=== PATIENT | male | born 1945 | race Caucasian/White ===

== ENCOUNTER 2024-05-17 14:05 | Inpatient (IN) | payer MEDICARE, OTHER, SELFPAY ==
[2024-05-17] VITALS (10 sets, daily range): BP systolic 114–139; BP diastolic 61–88; BMI 28.3
[2024-05-17 10:25] LABS: Glucose - Point of Care 103 mg/dl (70-99)
--- NOTE | 2024-05-17 10:36 | ED.CVA ---
History of Present Illness
General
Chief Complaint: CVA/TIA Symptoms
Source: patient and spouse
Exam Limitations: none
Time Seen by Provider: 05/17/24 10:17
Nursing documentation reviewed up to this point in time: agreed with
Onset of Stroke Symptoms
Onset of symptoms known: No
Date of onset of symptoms: 05/17/24
Time pt last seen normal is known: Yes
Date last time pt seen normal: 05/16/24
Time last time pt seen normal: 22:00
History of Present Illness
History of Present Illness:
The patient is a very pleasant 79-year-old man with a past medical history of atrial fibrillation with a watchman's, subdural hematoma several years ago after a fall, essential tremors, who just underwent a total right knee replacement done 3 days
ago, who reportedly went to bed acting normal at 10:00 last night and was observed to have a left facial droop and slurred speech by his at 8 AM this morning. Patient reports he feels slight numbness in the right cheek. Patient took 325 mg
aspirin this morning. His reports he was taken off Eliquis years ago after the watchman's. Patient has no pain, including no headache. He denies weakness and numbness of the legs and arms. His speech sounds slurred but is comprehensible.
Stroke alert called. Neurology at bedside.
Past History
Past History
ED Past Medical History: Arrthythmia (afib on Xarelto) and Other (tremors, kidney stones)
ED Past Surgical History: Appendectomy, Orthopedic and Other (van IHR)
Social History
Tobacco: Non-smoker
Review of Systems
Review of Systems
Allergies reviewed?: Yes
All Other Systems: ROS reviewed and negative except as documented in HPI and ROS
Constitutional: Reports no symptoms
EENT: Reports no symptoms
Respiratory: Reports no symptoms
ABD/GI: Reports no symptoms
: Reports no symptoms
Musculoskeletal: Reports no symptoms
Skin: Reports no symptoms
Neurological: Reports other
Endocrine: Reports no symptoms
Hematologic/Lymphatic: Reports no symptoms
Psychiatric: Reports no symptoms
Phy Exam
Physical Exam
Physical Exam:
Physical Exam
General: no apparent distress, not acutely ill. Left facial droop
Neck: supple. no meningeal signs. normal psoterior pharynx
Heart: s1/s2 regular rate and rhythm, no murmur. equal radial pulses.
Lungs: no acute respiratory distress. clear bilaterally
Abdomen: normal bowel sounds. not tender. no CVAT
Neuro: alert and orientedx3. Left facial droop. Extraocular muscles intact. No drift in upper or lower extremities. 5 out of 5 strength in all extremities. Equal sensation bilaterally with the exception of slightly
diminished sensation in right cheek. Garbled speech but speech is completely comprehensible. Answers all questions appropriately. Follows all commands appropriately
Skin: no rash
Psychiatric: well kept. interactive and cooperative
Extremities: no edema. no calf tenderness. negative homans. good distal pulses
Scores
NIH Stroke Score
Level of Consciousness: 0 - Alert
LOC Questions: 0-Answers both correctly
LOC Commands: 0-Performs both correctly
Best Horizontal Gaze: 0-Normal
Visual [place]: 0=Normal, no visual loss
Facial Palsy: 2=Partial paralysis
Motor - Right Arm: 0=No drift 10 seconds
Motor - Left Arm: 0=No drift 10 seconds
Motor - Right Le-No drift 5 seconds
Motor - Left Le-No drift 5 seconds
Limb Ataxia: 0-Absent
Sensation: 0-Normal
Best Language: 0-No aphasia
Dysarthria: 1-Mild slurring
Extinction and Inattention: 0-No abnormality
Total Score:: 3
Thrombolytic Contraindication
Inclusion and Exclusion criteria reviewed: Yes
Reasons for NON-Tx with Thrombolytics ABSOLUTE Exclusions: Greater than 4.5 hrs from onset of sxs (Wake-up stroke)
IAT Contraindications: NIHSS < 6
Course
Orders/Labs/Results
Orders:
Orders
05/17/24 10:29
Electrocardiogram (*1) Urgent
Reason for Study: Other
Other Reason for Exam: Possible Stroke
CT HEAD STROKE ALERT W/o Cont Urgent
Comment:
Reason For Exam: facial droop/ s;lurred speech
CT HEAD/NECK ANG STROKE ALERT Urgent
Comment:
Reason For Exam: facial droop/ s;lurred speech
Bedside Glucose- Treatment ONCE
Cardiac Monitoring- Treatment ONCE
EKG- Treatment ONCE
IV Insert/Care/Rem.- Treatment PRN
Vital Signs As Directed
Frequency: Other
Weight As Directed
Frequency: Once
Comment: ZERO STRETCHER SCALE FOR ACCURATE WEIGHT
O2 Therapy [RESP] Urgent
Titrate/Wean O2 to maintain O2 sat greater than (%): 93
Special Instructions: MAINTAIN CONTINUOUS O2 SATS > OR = 93%
05/17/24 10:30
Complete Blood Count/With Diff Urgent
Comprehensive Metabolic Panel Urgent
PTT Urgent
Prothrombin Time Urgent
Troponin I Urgent
05/17/24 10:36
Diphenhydramine [Benadryl] 50 mg IV NOW STA
05/17/24 10:37
Diphenhydramine [Benadryl] 50 mg .ROUTE .STK-MED ONE
05/17/24 11:14
MRI Brain [MR Brain Without Contrast] Routine
Comment:
Reason For Exam: dysarthria
OK for patient to be off Cardiac Monitoring for MRI: No
Recent pill cam endoscopy?: No
05/18/24 08:00
Aspirin 325 mg PO DAILY
Abnormal Lab Results
05/17/24 05/17/24
10: 10:30
RBC 3.80 L 10^6/uL
(4.70-6.10)
Hgb 12.7 L g/dL
(13.0-18.0)
Hct 36.8 L %
(39.0-52.0)
MCV 96.8 H fL
(80.0-94.0)
MCH 33.4 H pg
(27.0-31.0)
Absolute Monos (auto) 1.1 H 10^3/uL
(0.1-0.6)
Lymphocytes % 16.9 L %
(20.5-51.1)
Monocytes % 13.7 H %
(1.7-9.3)
Sodium 133 L mmol/L
(135-145)
Chloride 96 L mmol/L
(98-107)
BUN 26 H mg/dl
(9-20)
Total Protein 6.0 L g/dl
(6.3-8.2)
POC Glucose 103 H mg/dl
(70-99)
05/17/24 10:30
05/17/24 10:30
Vital Signs
Initial and Last Documented VS:
Initial Vital Signs
Temp Pulse Resp BP Pulse Ox
97.8 F 64 16 114/76 99
05/17/24 10:14 05/17/24 10:14 05/17/24 10:14 05/17/24 10:14 05/17/24 10:14
Last Documented Vital Signs
Temp Pulse Resp BP Pulse Ox
97.8 F 65 12 125/77 97
05/17/24 10:14 05/17/24 11:30 05/17/24 11:30 05/17/24 11:00 05/17/24 11:30
MDM/Problems Addressed
Differential Diagnosis Includes:
Acute ischemic CVA, acute hemorrhagic CVA, hypoglycemia
MDM/Problems Addressed:
Patient presents with acute slurred speech and left facial droop
Chronic conditions affecting care:
A-fib can increase risk of stroke
*Radiology
Radiology exam reviewed: radiology read reviewed
*Pulse Oximetry
Patient hypoxic: no
*EKG
Interpreted by ED Provider?: Yes
Interpretation: abnormal
Comparison EKG: no comparison EKG present
Rate: normal
Rhythm: a-fib
[place]: left axis deviation
Interval: normal interval
QRS Pattern: normal QRS
Ischemia: non-specific ST changes
*Safety Intern Interpretation
Rate: normal
Interpretation: normal
*Critical Care Note
Total Time (30-74mins, 75-104mins- exclusive of procedures): 42 minutes
comment:
42 minutes of critical care given to patient including frequent reassessments of his neurological exam, speaking to his , counseling the patient, speaking to neurology as well as reviewing his CT and lab work
Data Reviewed
Review of Other/Old Records Reveals: Discharge Summary (Discharge summary reviewed from [facility] when patient underwent Watchman procedure for A-fib)
Source: patient and spouse
Patient Management
Discussion with other providers: Hospitalist and Other (Neurologist on-call who is at the bedside.)
Escalation/DeEscalation of care consider admission/obs:
Patient will be admitted for likely ischemic stroke. Patient is not a TNK candidate given that it was a wake-up stroke and has mild symptoms.
ED Attending Note
-
Portions of this chart may have been created with voice recognition software.� Occasional wrong word or��sound alike� substitutions may have occurred due to the inherent limitations of voice recognition software.
Discharge Plan
Departure
Patient Disposition: Admit
Date of Disposition: 05/17/24
Time of Disposition: 10:47
Admit to: Telemetry
Presentation/result/management discussed w/ accepting MD/DO: Hospitalist
Patient with high blood pressure during this ER visit?: No
Condition: Good
Discharge Problem:
Acute CVA (cerebrovascular accident)
Prescriptions:
No Action
diphenhydramine HCl 50 mg Capsule
50 mg PO PRN PRN (Reason: allergies)
omeprazole 40 mg Capsule,Delayed Release(Dr/Ec)
40 mg PO DAILY
propranolol 20 mg Tablet
20 mg PO BID
alfuzosin 10 mg Tablet Extended Release 24 Hr
10 mg PO DAILY
aspirin [aspirin] 81 mg tablet,chewable
81 mg PO DAILY Qty: 1 0RF
Eliquis 2.5 mg tablet
2.5 mg PO BID Qty: 180 3RF
Referrals:
Bryant Tijerina DO [Family Provider] -
Interventions
Interventions:
*Risk Screen - Suicide Last Done: 05/17/24 10:36
*General Assessment Last Done: 05/17/24 10:14
*Neglect/Abuse Screening Last Done: 05/17/24 10:36
ED- Fall Risk Assessment Last Done: 05/17/24 10:37
*ED COVID-19 Vaccine History Last Done: 05/17/24 10:14
ED- Pulmonary Assessment Last Done: 05/17/24 10:37
ED- Neurological Assessment Last Done: 05/17/24 10:32
ED- Cardiac Assessment Last Done: 05/17/24 10:37
Discharge Date and Time
Print Language: TURKMEN
[2024-05-17] MEDS: BENADRYL 50 MG IV (10:39)
--- NOTE | 2024-05-17 10:53 | CON.NEURO ---
Consultation
Order
Date of Consultation: 05/17/24
Requesting Provider: Ryann Vargas MD
Reason for Consult: Stroke alert
Activated: 10:18 AM
HPI: This is a 79-year-old left-handed man who presented to [facility] on May 17, 2024 with dysarthria. According to the patient he was able to ambulate to bathroom around 3 AM today. He was noted to have slurred speech and
facial asymmetry around 8 AM today in the morning by his spouse. No reports of motor, sensory visual deficits. [place] [facility] [place]
Mr. Cruz took ASA 325 mg today in the morning.
ER VS: 114/76, 64, afebrile.
PDMP: Tramadol Hcl 50 Mg 60 tabs filled in on 04/29/2024; Oxycodone Hcl�40 tabs filled in on 04/29/2024.
Labs: pending
CT head-no acute abnormalities.
MAVIS(11/01/22) No clear evidence of shunt by color flow Doppler.
PMH:Essential tremor, A-Fib, h/o traumatic SAH/SDH, ambulatory dysfunction, nephrolithiasis, BPH, h/o GIB, SNHL
PSH: Right TKA(05/14/2024), Watchman's procedure, Mohs surgery, appendectomy, bilateral cataract surgery, hernia repair, cystolitholapaxy, nephrolithiasis
SH: , retired,nonsmoker.
All: Iodine
HENT: Positive for poor hearing
Musculoskeletal:positive for right knee pain
Neurological: Positive for dysarthria, difficulties with ambulation.
General: Well developed. In no acute distress.
Cardio: Regular rate and rhythm without murmur. Extremities are without cyanosis or edema.
Neuro:
Mental Status: Alert, oriented to person, place, and date. Good fund of knowledge. Follows complex requests across the midline. Comprehension, naming, and repetition intact.
Cranial Nerves: . Pupils are equally round and reactive to light. EOMs full. Visual gar full to confrontation. No ptosis. No nystagmus. V1-V3 intact to light touch and pinprick bilaterally, symmetric. Mild left facial weakness. Poor hearing
AU. The palate elevated well. SCMs and traps 5/5. Tongue midline. Mild to mod dysarthria.
Motor: No PD or leg drift
Sensory: no extinction to DSS
Coordination: No dysmetria BL action hand tremor
Gait: deferred
Assessment and Plan:
I. Acute R lacunar syndrome. Not a candidate to IV thrombolysis due to recent surgery and timing of the symptoms onset.
II.Essential tremor
III. Ambulatory dysfunction
-Fall precautions
-Avoid cerebral hypoperfusion
-Brain MRI wo geronimo
-Continue ASA 325 mg QD
-Plavix 75 mg QD for 21 days if no objections from ortho service
-Lipitor 40 mg QHS.
-Continue home dose of Propranolol
-Please check HbA1C, LDL, TFTs, ua, ua cx, ua tox
-Follow up CTA head/neck results
-PT.
-DVT prophylaxis.
I personally reviewed all radiology and labs along with past medical records pertinent to current medical problems. Total time spent in patient care is 60 minutes.
Thank you for allowing us to participate in the care of this patient. We will continue to follow. Please do not hesitate to contact us with any questions or concerns.
Subjective/Objective
Subjective Data
Date of Service: May 17, 2024
Objective Data
Vital Signs
Temp Pulse Resp BP Pulse Ox
36.6 C 64 16 114/76 99
05/17/24 10:14 05/17/24 10:14 05/17/24 10:14 05/17/24 10:14 05/17/24 10:14
Patient Allergies
Iodinated Contrast Media Allergy (Mild, Verified 11/01/22 07:43)
Rash
Medications
-
Home Medications
�Medication �Instructions �Recorded
alfuzosin 10 mg tablet,extended 10 mg PO DAILY 09/18/22
release 24 hr
apixaban 2.5 mg tablet (Eliquis) 2.5 mg PO BID #180 tabs 09/18/22
aspirin 81 mg chewable tablet 81 mg PO DAILY #1 tab 09/18/22
diphenhydramine HCl 50 mg capsule 50 mg PO PRN PRN allergies 09/18/22
omeprazole 40 mg capsule,delayed 40 mg PO DAILY 09/18/22
release
propranolol 20 mg tablet 20 mg PO BID 09/18/22
Vital Signs and Labs
-
Vital Signs and Labs:
Vital Signs
Temp Pulse Resp BP Pulse Ox
36.6 C 64 16 114/76 99
05/17/24 10:14 05/17/24 10:14 05/17/24 10:14 05/17/24 10:14 05/17/24 10:14
Lab Results
05/17/24 10:30
Home Medications
-
Home Medications
alfuzosin 10 mg tablet,extended release 24 hr 10 mg PO DAILY 09/18/22
apixaban 2.5 mg tablet (Eliquis) 2.5 mg PO BID #180 tabs 09/18/22
aspirin 81 mg chewable tablet 81 mg PO DAILY #1 tab 09/18/22
diphenhydramine HCl 50 mg capsule 50 mg PO PRN PRN allergies 09/18/22
omeprazole 40 mg capsule,delayed release 40 mg PO DAILY 09/18/22
propranolol 20 mg tablet 20 mg PO BID 09/18/22
[2024-05-17 10:59] LABS: % Basophils 0.4 % (0-2); % Eosinophils 0.5 % (0-6); % Immature Granulocytes 0.3 % (0-0.5); % Lymphocytes 16.9 % (20.5-51.1); % Monocytes 13.7 % (1.7-9.3); % Neutrophils 68.2 % (42.2-75.2); Absolute Lymphocytes 1.3 10^3/uL (1.2-3.4); Absolute Monocytes 1.1 10^3/uL (0.1-0.6); Absolute Neutrophils 5.2 10^3/uL (1.4-6.5); Hematocrit 36.8 % (39.0-52.0); Hemoglobin 12.7 g/dL (13.0-18.0); Mean Corp Hgb Conc. 34.5 g/dL (33.0-37.0); Mean Corpuscular Hgb 33.4 pg (27.0-31.0); Mean Corpuscular Volume 96.8 fL (80.0-94.0); Mean Platelet Volume 9.6 fL (7.4-10.4); Nucleated Red Blood Cells % 0 % (-); Platelet Count 216 10^3/uL (130-400); Red Cell Dist. Width 13.2 % (11.5-14.5); White Blood Cell Count 7.7 10^3/uL (4.8-10.8)
[2024-05-17 11:10] LABS: INR 1.16; PT 14.6 Sec (11.4-14.6)
[2024-05-17 11:11] LABS: APTT 31.4 Sec (23.4-35.0)
[2024-05-17 11:16] LABS: ALT (SGPT) 17 U/L (0-50); AST (SGOT) 19 U/L (17-59); Albumin 3.6 g/dl (3.5-5.0); Alkaline Phosphatase 62 U/L (38-126); Blood Urea Nitrogen 26 mg/dl (9-20); Calcium 9.7 mg/dl (8.4-10.2); Carbon Dioxide 29 mmol/L (22-30); Chloride 96 mmol/L (98-107); Estimated Creatinine Clearance 85 ml/min; Glucose 93 mg/dl (70-99); Potassium 4.5 mmol/L (3.5-5.1); Sodium 133 mmol/L (135-145); Total Bilirubin 0.9 mg/dl (0.2-1.3); eGFR > 60.00
[2024-05-17 11:27] LABS: Troponin I < 0.012 ng/ml
--- NOTE | 2024-05-17 13:42 | HPS.HSE ---
Family Physician
-
Family Physician: Bryant Tijerina
Chief Complaint
-
slurred speech and facial asymmetry
History of Present Illness
79-year-old male with past medical history of essential tremor, atrial fibrillation on aspirin 325 mg daily, history of traumatic SAH/SDH, amatory dysfunction, nephrolithiasis, BPH, history of GI bleed now presenting for dysarthria. Recent right
TKA Patient had woken up today to go to the bathroom at approximately 3 AM with no known changes in mental status/motor symptoms.. Subsequently woke up at 8 AM, and at that time noted to have slurred speech and facial asymmetry. No fever, chills,
nausea, vomiting. No other motor, sensory, visual deficits. Last known unknown at 10 PM yesterday night. Patient did take aspirin 325 mg today.
Medical History
Past Medical History
Past Medical History: Reports Other
Additional Past Medical History:
Essential tremor, A-Fib, h/o traumatic SAH/SDH, ambulatory dysfunction, nephrolithiasis, BPH, h/o GIB, SNHL
Past Surgical History: Reports Other
Additional Past Surgical History:
Right TKA(05/14/2024), Watchman's procedure, Mohs surgery, appendectomy, bilateral cataract surgery, hernia repair, cystolitholapaxy, nephrolithiasis
Social History
Tobacco: Non-smoker
Personal:
Living: With Family
Family History
Family History: Not pertinent
Allergies / Home Medications
Allergies reflects when Allergies were last updated in [employer].
Home Medications with original date entered in [employer]
Allergy/Medication List:
Allergies
Allergy/AdvReac Type Severity Reaction Status Date / Time
Iodinated Contrast Media Allergy Mild Rash Verified 11/01/22 07:43
Home Medications
alfuzosin 10 mg tablet,extended release 24 hr 10 mg PO DAILY 09/18/22
diphenhydramine HCl 50 mg capsule 50 mg PO Q6HPRN PRN allergies 09/18/22
propranolol 20 mg tablet 20 mg PO BID 09/18/22
acetaminophen 650 mg tablet,extended release 1,300 mg PO TIDPRN PRN mild pain 05/17/24
aspirin 325 mg tablet 325 mg PO DAILY 05/17/24
calcium carbonate (Tums) 200 mg PO BIDPRN PRN gerd 05/17/24
docusate sodium 100 mg capsule (Colace) 100 mg PO BID 05/17/24
finasteride 5 mg tablet 5 mg PO QPM 05/17/24
gabapentin 100 mg capsule 100 mg PO TID 05/17/24
omeprazole 20 mg tablet,delayed release 20 mg PO DAILY 05/17/24
ondansetron 4 mg disintegrating tablet 4 mg PO Q6HPRN PRN NAUSEA 05/17/24
oxycodone 5 mg tablet 5 mg PO Q4HPRN PRN SEVERE PAIN 05/17/24
Review of Systems
-
History Source: Patient
A 12 point ROS was completed and negative except as noted: Yes
Physical Exam
Vital Signs
Vital Signs
Temp Pulse Resp BP Pulse Ox
97.8 F 64 14 115/61 96
05/17/24 10:14 05/17/24 12:45 05/17/24 12:45 05/17/24 12:00 05/17/24 12:45
Physical Exam
General: Well Developed
HEENT: NormoCephalic
Respiratory: Clear
Cardiac: S1/S2 and Regular Rhythm
GI: Soft and Non Tender
Musculoskeletal: No Clubbing
Skin: Warm and Dry
Neuro: Awake, Alert, Oriented and AO x 3
Hematologic/Lymphatic: No Lymphadenopathy
Laboratory Results
-
05/17/24 10:30
05/17/24 10:30
Laboratory Results
PT 14.6 Sec (11.4-14.6) 05/17/24 10:30
INR 1.16 05/17/24 10:30
APTT 31.4 Sec (23.4-35.0) 05/17/24 10:30
Total Bilirubin 0.9 mg/dl (0.2-1.3) 05/17/24 10:30
AST 19 U/L (17-59) 05/17/24 10:30
ALT 17 U/L (0-50) 05/17/24 10:30
Alkaline Phosphatase 62 U/L (38-126) 05/17/24 10:30
Troponin I < 0.012 ng/ml 05/17/24 10:30
Data Reviewed
-
CT Scan: Image Personally Visualized and interpreted and Report Reviewed by me
Lab Data: Labs Reviewed by me
Impression/Plan
-
IMPRESSION:
79-year-old male with past medical history of essential tremor, atrial fibrillation on aspirin 325 mg daily, history of traumatic SAH/SDH, ambulatory dysfunction, nephrolithiasis, BPH, history of GI bleed now presenting for dysarthria. Found to have
TIA/CVA
PLAN:
#TIA v CVA
-suspected Acute R lacunar syndrome
-Permissive hypertension, okay for propranolol for essential tremor at this point
-Brain MRI wo geronimo
-Continue ASA 325 mg QD (prior med for surgery but was on 81mg prior to)
-Plavix 75 mg QD for 21 days - generally no issue from ortho service for plavix; (our ortho service said its okay for DAPT) i Called ortho surgeon who performed the procedure - and left VM - number is [phone]
-Lipitor 40 mg QHS.
-Continue home dose of Propranolol
-Check HbA1C, LDL, TFTs, ua, ua cx, ua tox
-PT/OT
-ECHO
-monitor cbc, stool with dapt in setting of hx of GI bleed
#Atrial Fibrillation s/p watchman
-Cont ASA 325mg (was on 81mg prior to TKA),
-ECHO
-Sees Sangrigoli outpatient
#Recent TKA
-monitor cbc with DAPT
#BPH
-hold alfuzosin for now
-DVT prophylaxis - hsq
--- NOTE | 2024-05-17 16:25 | PTCARENOTE ---
patient arrived to floor 1500. Vitals and nursing assessment complete at this time. NIH scale 2 which is unchanged from the score in the ED given to me in report.
[2024-05-17] MEDS: PROSCAR 5 MG PO (17:24)
[2024-05-17] MEDS: NEURONTIN 100 MG PO ×2 (17:24→21:39)
[2024-05-17] MEDS: LIPITOR 40 MG PO (17:24)
[2024-05-17 18:32] LABS: ALT (SGPT) 17 U/L (0-50); AST (SGOT) 20 U/L (17-59); Albumin 3.6 g/dl (3.5-5.0); Alkaline Phosphatase 64 U/L (38-126); Blood Urea Nitrogen 22 mg/dl (9-20); Calcium 9.7 mg/dl (8.4-10.2); Carbon Dioxide 29 mmol/L (22-30); Chloride 99 mmol/L (98-107); Estimated Creatinine Clearance 97 ml/min; Glucose 142 mg/dl (70-99); Potassium 4.6 mmol/L (3.5-5.1); Sodium 135 mmol/L (135-145); Total Bilirubin 0.9 mg/dl (0.2-1.3); Total Protein 5.9 g/dl (6.3-8.2); eGFR > 60.00
[2024-05-17] MEDS: INDERAL 20 MG PO (21:35)
[2024-05-17] MEDS: COLACE 100 MG PO (21:36)
[2024-05-17 22:12] LABS: Urine Albumin Negative (Neg - Trace); Urine Bilirubin Negative (Negative); Urine Character Clear (Clear); Urine Color Straw; Urine Glucose Negative (Negative); Urine Ketone Negative (Negative); Urine Leukocyte Negative (Negative); Urine Nitrite Negative (Negative); Urine Occult Blood Negative (Negative); Urine Specific Gravity 1.005 (<1.030); Urine Urobilinogen Negative (Neg - 1+)
[2024-05-17 22:21] LABS: Amphetamines Negative (Negative); Barbiturates Negative (Negative); Benzodiazepines Negative (Negative); Buprenorphine Negative (Negative); Cocaine Negative (Negative); Marijuana Negative (Negative); Methadone Negative (Negative); Methamphetamines Negative (Negative); Opiates Negative (Negative); Phencyclidine Negative (Negative); Tricyclic Antidepressants Negative (Negative)
[2024-05-18] VITALS (8 sets, daily range): BP systolic 104–169; BP diastolic 55–92; PULSE 81–92; O2SAT 98; BMI 26.6
[2024-05-18 07:00] LABS: Hematocrit 33.7 % (39.0-52.0); Hemoglobin 11.6 g/dL (13.0-18.0); Mean Corp Hgb Conc. 34.4 g/dL (33.0-37.0); Mean Corpuscular Hgb 32.7 pg (27.0-31.0); Mean Corpuscular Volume 94.9 fL (80.0-94.0); Mean Platelet Volume 10.1 fL (7.4-10.4); Platelet Count 208 10^3/uL (130-400); Red Blood Cell Count 3.55 10^6/uL (4.70-6.10); Red Cell Dist. Width 13.2 % (11.5-14.5); White Blood Cell Count 7.3 10^3/uL (4.8-10.8)
[2024-05-18 07:24] LABS: HDL Cholesterol 59 mg/dl; LDL Cholesterol, Calculated 71 mg/dl; Magnesium 1.9 mg/dl (1.6-2.3); Total Cholesterol 142 mg/dl (50-199); Triglyceride 62 mg/dl (10-149); Very Low Density Lipoprotein 12 mg/dl (0-30)
[2024-05-18 07:51] LABS: TSH Reflex To Free T4 0.72 uIU/ml (0.47-4.68)
[2024-05-18] MEDS: INDERAL 20 MG PO ×2 (08:43→20:26)
[2024-05-18] MEDS: ASPIRIN 325 MG PO (08:43)
[2024-05-18] MEDS: NEURONTIN 100 MG PO ×3 (08:43→22:30)
[2024-05-18] MEDS: COLACE 100 MG PO ×2 (08:44→20:24)
[2024-05-18] MEDS: PROTONIX 40 MG PO (08:44)
[2024-05-18] MEDS: TYLENOL 1000 MG PO ×3 (08:53→22:30)
--- NOTE | 2024-05-18 10:12 | W.PN.HOSP.TC ---
Today's Communication/Plan
-
CVA workup
Assessment / Plan
Assessment / Plan
Impression:
Presentation with acute onset of left facial droop and aphasia
Acute right hemispheric CVA/right lacunar syndrome.
Conditions prior to admission:
Right TKA 05/15
Chronic atrial fibrillation.
Status post watchman placement 09/27.
Hypertension
History of subdural hematoma 04/26 while on rivaroxaban.
History of middle meningeal artery embolization baseline GERD.
Benign prostatic hyperplasia
Essential tremor.
History of gastrointestinal hemorrhage and duodenal ulcers
Plan:
Acute right lacunar syndrome.
Patient presents with acute onset of aphasia and left facial droop.
Persistent symptoms.
CT scan of the head with no acute abnormalities.
CTA with no vascular occlusion.
Patient was not a candidate for thrombolytic therapy due to unknown timing of onset of his symptoms.
Has been on aspirin prior to presentation, dose increased to full dose for DVT prophylaxis with recent TKA on 05/15.
Start DAPT for 21 days with addition of Plavix. Patient cleared for DAPT by primary orthopedics.
Continue PPI.
Additional workup with MRI
LDL 71. Initiated on statin
Goal is normotension. Continue propranolol (has been taking it for essential tremor). Monitor blood pressure trend
Hemoglobin A1c pending
DVT prophylaxis with heparin
Physical therapy assessment
Speech and swallow assessment reports cough with liquid.
Check VSE
Right TKA pain
Physical therapy
Analgesia with Tylenol/Ultram/Neurontin. Patient reports poor tolerance to oxycodone
Persistent atrial fibrillation
Status post watchman.
Echocardiogram
Cardiology evaluation.
History of BPH.
Monitor for retention
History of gastrointestinal hemorrhage and duodenal ulcers
Continue PPI
Anticipated Discharge: 24 - 48 hours
Subjective/Interval History
-
Date of Service: May 18, 2024
Objective Data
-
Labs:
Laboratory Results
05/18/24
05:44
WBC 7.3
Hgb 11.6 L
Hct 33.7 L
Plt Count 208
Vital Signs:
Vital Signs
Temp Pulse Resp BP Pulse Ox
98.6 F 79 18 136/80 96
05/18/24 07:10 05/18/24 08:43 05/18/24 07:10 05/18/24 08:43 05/18/24 07:10
I&O
05/17/24 05/18/24 05/19/24
06:59 06:59 06:59
Intake Total 1060 / 1060
Output Total 2250 / 2250
Balance -1190 / -1190
Physical Exam
-
General: Well Developed and No Apparent Distress
HEENT: Normocephalic, Atraumatic and Moist Mucous Membranes
Respiratory: Clear to Auscultation
Cardiac: Regular Rhythm and S1/S2; Negative Murmur, Rub or Gallop
GI: Soft, Nontender, Nondistended and Normal Bowel Sounds; Negative Organomegaly
Rectal: Deferred by Provider
Musculoskeletal: No Clubbing, No Cyanosis and No Edema
Skin: Negative Rash
Neuro: Tremors, Slurred Speech and Facial Droop (Left)
--- NOTE | 2024-05-18 10:26 | PTOTSP ---
Speech Therapy Evaluation Note
Pt presents with suspected mild oropharyngeal dysphagia. Pt failed 3oz water test and demonstrated s/sx of aspiration on evaluation with thins via cup and endorses difficulty with thins via straw prior to admission.
Recommend:
1. IDDSI Level 7 (regular) and thin liquids
2. Medications as tolerated
3. General aspiration precautions
4. VSE to further assess oropharyngeal swallowing function and determine safest/least restrictive diet for optimal nutrition/hydration
5. Continued ST to monitor diet tolerance and assess airway protection
[2024-05-18 11:02] LABS: Glycohemoglobin (HgbA1c) 5.6 % (4.0-5.6)
[2024-05-18] MEDS: PLAVIX 75 MG PO (11:57)
--- NOTE | 2024-05-18 12:19 | CON.CAR ---
Addendum entered and electronically signed by Jeff Cruz MD 05/18/24 15:46:
I saw and examined the patient.
The Car Salesman's note was reviewed and I agree with the note.
Comment:
GEN: No distress, awake, Ox3
HEENT: supple, anicteric, mmm
LUNGS: CTA, no wheezes/rales
CV: Irreg, S1/S2, 1/6 syst LSB, no gallop
ABD: soft, BS+, NT/ND
EXT: R TKA
NEURO: Left facial droop.
SKIN: No rash
Plan:
79-year-old male well-known to our service with past medical history of chronic atrial fibrillation status post Watchman September 2022, hypertension, previous subarachnoid hemorrhage status post fall 2021, GERD, history of GI bleed duodenal ulcer
who presents with an acute stroke. The patient stop his aspirin 5 days prior to right total knee replacement. He woke up 2 days post surgery with a left-sided facial droop and dysarthria. It was felt he was out of the window for thrombolytics.
MRI of the brain revealed a small acute infarct in the right insular cortex. He also has of note chronic intraparenchymal microhemorrhage.
Plan:
I had a lengthy discussion with him and his . We agreed we will start with a transthoracic echo but he likely needs a transesophageal echo as well to evaluate his watchman. He had a history of a 1 to 2 cm small leak of his watchman. This was
in 2022.
He is high risk for restarting full anticoagulation with his history of intracranial bleeding. MRI of the brain does suggest this could be ischemic stroke. If this is ischemic stroke he would think his risk of embolic event from his permanent
A-fib with a watchman in place would not warrant restarting full anticoagulation. If he has a worsening leak around his watchman, we would need to have a discussion regarding anticoagulation.
For now recommend continue aspirin, Plavix, and aggressive risk factor modification.
LDL is 71. Continue high-dose atorvastatin 40 mg daily.
Continue propranolol.
Original Note:
Consultation
Consultation Request
Date/Time Consultation Requested: 05/18/2024
Date/Time Consultation Performed: 05/18/2024
Requesting Provider: Dr. Gil
Performing Provider: Sherine Fisher PA-C for Dr. Cruz
Reason for Consultation: Acute stroke
Medical History
-
History of Present Illness:
Patient is a 79-year-old male with past medical history significant for chronic atrial fibrillation, status post watchman implant 09/24/2022, hypertension, subarachnoid hemorrhage after traumatic fall while on Xarelto 04/24/2022, GERD, BPH, history of
GI bleed/duodenal ulcers and recent knee replacement 05/15/2024 who was off aspirin 5 days in preparation of surgery who presented to emergency department 05/17/2024 after awakening with dysarthria and left-sided facial droop. Stroke alert was
called on arrival. Head CT demonstrated no acute intracranial abnormality. CTA of head and neck showed no large vessel occlusion or significant stenosis, aneurysm. Of note ascending aorta 4.2 cm. He was deemed not a candidate for thrombolytics
as he was out of window. Patient underwent MRI of brain 05/18/2024 which confirmed small acute infarct in right insular cortex with mild cytotoxic edema. Chronic stable 4.3 mm intraparenchymal microhemorrhage in right cerebellar hemisphere.
At time of this evaluation patient sitting in chair with at bedside. He notes some residual dysarthria and left-sided facial droop. He denies chest pain, shortness of breath, dizziness, lightheadedness, palpitations.
PMH:
Permanent atrial fibrillation.
Status post watchman placement 09/27.
Hypertension
History of subdural hematoma 04/26 while on rivaroxaban.
History of middle meningeal artery embolization
GERD
Benign prostatic hyperplasia
Essential tremor.
History of gastrointestinal hemorrhage and duodenal ulcers
Past Medical History
Past Medical History: Other (See HPI)
Past Surgical History: Cardiac (Watchman implant 09/18/2022), Orthopedic (Rt TKA 05/15/2024), Urological (cystolitholapaxy 2018) and Other (Hernia repair, cataract extraction, Mohs procedure, MMA embolization of SAH)
Social History
Tobacco: Non-Smoker
Alcohol: Occasional
Drug: None
Personal:
Living: With Family
Family History
Family History: Reviewed & Not Pertinent
Allergies / Home Medications
Allergy/AdvReac Type Severity Reaction Status Date / Time
Iodinated Contrast Media Allergy Mild Rash Verified 11/01/22 07:43
�Medication �Instructions �Recorded �Confirmed �Type
alfuzosin 10 mg tablet,extended 10 mg PO DAILY Urinary Issue 09/18/22 05/17/24 History
release 24 hr
diphenhydramine HCl 50 mg capsule 50 mg PO Q6HPRN PRN allergies 09/18/22 05/17/24 History
propranolol 20 mg tablet 20 mg PO BID Blood Pressure 09/18/22 05/17/24 History
acetaminophen 650 mg 1,300 mg PO TIDPRN PRN mild pain 05/17/24 05/17/24 History
tablet,extended release
aspirin 325 mg tablet 325 mg PO DAILY Blood Clot 05/17/24 05/17/24 History
Prevention/Tx
calcium carbonate (Tums) 200 mg PO BIDPRN PRN gerd 05/17/24 05/17/24 History
docusate sodium 100 mg capsule 100 mg PO BID Constipation 05/17/24 05/17/24 History
(Colace)
finasteride 5 mg tablet 5 mg PO QPM Urinary Issue 05/17/24 05/17/24 History
gabapentin 100 mg capsule 100 mg PO TID Neurological 05/17/24 05/17/24 History
Condition
omeprazole 20 mg tablet,delayed 20 mg PO DAILY Gastrointestinal 05/17/24 05/17/24 History
release Issue
ondansetron 4 mg disintegrating 4 mg PO Q6HPRN PRN NAUSEA 05/17/24 05/17/24 History
tablet
oxycodone 5 mg tablet 5 mg PO Q4HPRN PRN SEVERE PAIN 05/17/24 05/17/24 History
Review of Systems
-
History Source: Patient
All other systems: Negative unless noted
Physical Exam
Vital Signs
Temp Pulse Resp BP Pulse Ox
97.3 F 91 18 126/73 98
05/18/24 11:00 05/18/24 11:00 05/18/24 11:00 05/18/24 11:00 05/18/24 11:00
GEN: No distress, awake, Ox3 sitting up in chair
HEENT: supple, anicteric, mmm
LUNGS: CTA, no wheezes/rales
CV: Irregularly irregular, S1/S2, 1/6 syst murmur at LSB/apex
ABD: soft, BS+, NT/ND
EXT: Rt knee incision well approximated with bre intact. +1-2 Rt LE edema, no edema LLE
NEURO: Mild dysarthria with left-sided facial droop
SKIN: No rash, warm, dry, pink
Lab Results
05/18/24 05:44
05/17/24 17:54
Troponin I < 0.012 ng/ml 05/17/24 10:30
Impression / Plan
-
Shoe Salesman: Dr. Hardy Soto
Impression:
Presented 05/17/2024 with dysarthria, left facial droop
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
Recent right TKA 05/15/2024
Permanent atrial fibrillation.
Status post watchman placement 09/27.
Hypertension
History of subdural hematoma 04/26 while on rivaroxaban.
History of middle meningeal artery embolization
GERD
Benign prostatic hyperplasia
Essential tremor.
History of gastrointestinal hemorrhage and duodenal ulcers
MAVIS 11/01/2022: EF 55 to 60% with moderately dilated left atrium and mild MR. Moderate AI and TR. Well-seated 24 mm Watchman device showing very small 1 to 2 mm leak.
Echo 05/14/2022 (OSH): Normal left ventricular size and function with ejection fraction of 55 to 60%, normal right ventricular size and function. The left atrium is severely dilated and the right atrium is moderately dilated. There is mild to
moderate mitral regurgitation as well as mild to moderate tricuspid regurgitation
Plan:
-Presented 05/17/2024 with dysarthria, left facial droop upon awakening. LKN 10 pm 05/16/2024
-Found to have acute right hemispheric CVA/right insular cortex stroke with stable chronic intraparenchymal microhemorrhage in right cerebellar hemisphere on MRI 05/18/2024
-Patient with permanent atrial fibrillation with controlled ventricular response on propranolol. He is s/p watchman implant. Post watchman MAVIS from October 2022 showed small 1 to 2 mm leak. Ideally there should be no leak, < 3 mm leaks are felt to be
low risk, 3-5 mm leaks are in a chambers range regarding ongoing thromboembolic risk and leaks > 5 mm are considered high risk and always require ongoing OAC.
-Would repeat echo with consideration of repeating MAVIS.
-Neurology recommending dual antiplatelet therapy with aspirin and Plavix x 21 days then single antiplatelet therapy after. However, given new stroke may need to consider OAC. Patient and his are very reluctant to start OAC given prior SAH and
GIB.
-Transition Omeprazole to Pantoprazole while on Plavix
-S/p Rt TKA with Dr Hardy Burnette at [facility] and is currently on aspirin 325 twice daily plus Celebrex per orthopedic protocol.
-Given history of prior lower GI bleed with duodenal ulcer would consider reduce aspirin to 81 mg while on Plavix to reduce risk of recurrent bleeding
-Pt on subcutaneous heparin for DVT prophylaxis
-Prestatin lipids 05/18/2022 TC 142, HDL 59, LDL 71, triglycerides 62. Patient started on atorvastatin 20 mg given acute stroke
HPI 05/18/2024:
Patient is a 79-year-old male with past medical history significant for chronic atrial fibrillation, status post watchman implant 09/24/2022, hypertension, subarachnoid hemorrhage after traumatic fall while on Xarelto 04/24/2022, GERD, BPH, history of
GI bleed/duodenal ulcers and recent knee replacement 05/15/2024 who was off aspirin 5 days in preparation of surgery who presented to emergency department 05/17/2024 after awakening with dysarthria and left-sided facial droop. Stroke alert was
called on arrival. Head CT demonstrated no acute intracranial abnormality. CTA of head and neck showed no large vessel occlusion or significant stenosis, aneurysm. Of note ascending aorta 4.2 cm. He was deemed not a candidate for thrombolytics
as he was out of window. Patient underwent MRI of brain 05/18/2024 which confirmed small acute infarct in right insular cortex with mild cytotoxic edema. Chronic stable 4.3 mm intraparenchymal microhemorrhage in right cerebellar hemisphere.
At time of this evaluation patient sitting in chair with at bedside. He notes some residual dysarthria and left-sided facial droop. He denies chest pain, shortness of breath, dizziness, lightheadedness, palpitations
Data Reviewed
-
EKG: Report Reviewed by me, Discussed with Physician, Discussed with Patient and Discussed with Family
CT Scan: Report Reviewed by me, Discussed with Physician, Discussed with Patient and Discussed with Family
MRI: Report Reviewed by me, Discussed with Physician, Discussed with Patient and Discussed with Family
Labs: Labs Reviewed by me, Discussed with Physician, Discussed with Patient and Discussed with Family
Old Records: Reviewed
[2024-05-18] MEDS: ULTRAM 50 MG PO ×2 (14:17→20:26)
--- NOTE | 2024-05-18 14:32 | CM ---
Patient seen at bedside with Nieves.
Dx: TIA vs. CVA
Recent R TKA on 05/[address] Burnette at [facility]
IA completed. Current with [facility]
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
Lives in a 2 story home with 4 steps to enter.
PLOF: Independent, walker
DME: walker, cane
Per after [facility] had set up for patient to go to outpatient therapy with [facility] in [place].
Patient seen by ST
PT recommending HH-patient and agreement
[facility]
PCP: Bryant Tijerina
Pharmacy: [facility]
PLAN: Home with [facility], RN, PT, OT, ST
[facility]
Fax #: [phone]
[2024-05-18] MEDS: LIPITOR 40 MG PO (17:12)
[2024-05-18] MEDS: PROSCAR 5 MG PO (17:12)
[2024-05-19 03:40] VITALS: BP 123/72
[2024-05-19 07:10] VITALS: BP 143/86
[2024-05-19] MEDS: PLAVIX 75 MG PO (08:32)
[2024-05-19] MEDS: PROTONIX 40 MG PO (08:32)
[2024-05-19] MEDS: NEURONTIN 100 MG PO ×3 (08:32→20:14)
[2024-05-19] MEDS: INDERAL 20 MG PO ×2 (08:32→20:16)
[2024-05-19] MEDS: COLACE 100 MG PO ×2 (08:32→20:14)
[2024-05-19] MEDS: ASPIR LOW (ENTERIC COATED) 81 MG PO (08:32)
--- NOTE | 2024-05-19 08:39 | PTCARENOTE ---
Pt Scheduled for ECHO and MAVIS this am. Ok to give morning meds per MD Dr. Gil. Patient comfortable this morning and di not want anything for pain.
--- NOTE | 2024-05-19 10:31 | W.PN.NEURO.1 ---
Today's Communication / Plan
-
Continue current antiplatelet therapies. Patient to proceed with MAVIS
Neuro Assessment/Plan
Assessment
79-year-old male with history of essential tremor chronic atrial fibrillation status post Watchman device posttraumatic subarachnoid hemorrhage GI bleed who was admitted with slurred speech LEFT facial weakness postop right knee. MRI revealed RIGHT
subcortical lacunar infarct most likely related to the procedure possible fat embolism
Plan
Continue aspirin.
Continue current blood pressure medications
Pain management as per Ortho
Patient to proceed with MAVIS
Subjective/Objective
Subjective Data
Date of Service: May 18, 2024
Patient continues to have RIGHT facial asymmetry with normal speech pattern
Objective Data
Vital Signs
Vital Signs
Temp Pulse Resp BP Pulse Ox
98.6 F 79 18 136/80 96
05/18/24 07:10 05/18/24 08:43 05/18/24 07:10 05/18/24 08:43 05/18/24 07:10
Lab Results
05/18/24 05:44
05/17/24 17:54
PT 14.6 Sec (11.4-14.6) 05/17/24 10:30
INR 1.16 05/17/24 10:30
APTT 31.4 Sec (23.4-35.0) 05/17/24 10:30
Sodium 135 mmol/L (135-145) 05/17/24 17:54
Potassium 4.6 mmol/L (3.5-5.1) 05/17/24 17:54
BUN 22 mg/dl (9-20) H 05/17/24 17:54
Glucose 142 mg/dl (70-99) H 05/17/24 17:54
Calcium 9.7 mg/dl (8.4-10.2) 05/17/24 17:54
LDL Cholesterol, Calc 71 mg/dl 05/18/24 05:44
Ur Buprenorphine Negative (Negative) 05/17/24 22:03
Patient Allergies
Iodinated Contrast Media Allergy (Mild, Verified 11/01/22 07:43)
Rash
Physical Exam
-
General: Well Developed, Well Nourished and Comfortable
Eyes: Able to visualize OU
HEENT: Normocephalic, Atraumatic and Anicteric
Skin: Unremarkable and Warm
Extremities: No Clubbing, No Cyanosis, No Edema and Other (Right knee postop dressing)
Psych: Unremarkable and Intact Judgement/Insight
Extended Neurological Exam
Mood & Affect: Mood Unremarkable and Affect Unremarkable
Attention Span & Concentration: Awake, Alert, Interactive and No Difficulty with 2 Step Request
Memory: Unremarkable and Able to Recall
Tremor: Other (Essential tremor)
Speech: Quality Unremarkable, Quantity Unremarkable and Rate of Production Unremarkable
Cranial Nerve II: Left Eye: Pupillary Reactivity Unremarkable and Pupillary Size Unremarkable
Cranial Nerve II: Right Eye: Pupillary Reactivity Unremarkable and Pupillary Size Unremarkable
Cranial Nerves III, IV, : Extraocular Movement: Extraocular Movement Full in all Directions
Cranial Nerve V: Facial Sensation: Intact to Light Touch
Cranial Nerve VII: Facial Symmetry: Reduced (LEFT facial weakness-upper motor neuron)
Cranial Nerve VIII: Hearing: Grossly Reduced
Cranial Nerves IX, X: Palate Movement: Palate Elevation Symmetric
Cranial Nerve XI: Shoulder Shrug: Unremarkable
Cranial Nerve XII: Tongue Protusion: Midline
Muscle Strength, Overall: Full Throughout
Muscle Bulk & Tone: Bulk Unremarkable and Tone Unremarkable
Pronator Drift: Drift in Right Upper Extremity
Deep Tendon Reflexes: Unremarkable Throughout
Cold Sensation: Unremarkable
Vibration Sensation: Unremarkable
Touch Sensation: Unremarkable
Coordination: [id number] Testing Unremarkable
Babinski Sign: Absent Bilaterally
Gait & Station: Unable to Assess (Postop right knee. )
--- NOTE | 2024-05-19 10:47 | W.PN.CARDCBS ---
Addendum entered and electronically signed by Lopez Cherry MD 05/19/24 15:03:
I saw and examined the patient.
The Film Crew Member's note was reviewed and I agree with the note.
Comment: Briefly, 79-year-old man past medical history of permanent atrial fibrillation status post watchman in 2022 who presented for total knee replacement and subsequently developed dysarthria and facial droop concerning for acute CVA. MRI of
the brain showing small focal infarct of the right insular cortex.
In regards to workup of cardioembolic stroke, he underwent MAVIS earlier today with well-seated Watchman and no clear cardiac source
Will defer medical management post stroke to neurology however 21 days of DAPT aspirin/Plavix and high intensity statin seems reasonable from my perspective
We will sign off, call with questions
Cardiology follow-up to be arranged
Original Note:
Today's Communication / Plan
-
scheduled for MAVIS today
also with dysphagia - does patient need speech eval/clearance first?
continue asa, plavix, statin
Impression / Plan
-
Sales Trader: Dr. Hardy Soto
Impression:
Presented 05/17/2024 with dysarthria, left facial droop
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
Recent right TKA 05/15/2024
Permanent atrial fibrillation.
Status post watchman placement 09/27.
Hypertension
History of subdural hematoma 04/26 while on rivaroxaban.
History of middle meningeal artery embolization
GERD
Benign prostatic hyperplasia
Essential tremor.
History of gastrointestinal hemorrhage and duodenal ulcers
MAVIS 11/01/2022: EF 55 to 60% with moderately dilated left atrium and mild MR. Moderate AI and TR. Well-seated 24 mm Watchman device showing very small 1 to 2 mm leak.
Echo 05/14/2022 (OSH): Normal left ventricular size and function with ejection fraction of 55 to 60%, normal right ventricular size and function. The left atrium is severely dilated and the right atrium is moderately dilated. There is mild to
moderate mitral regurgitation as well as mild to moderate tricuspid regurgitation
Echo 05/18/2024: EF 60%, enlarged RV size, dilated atria, mild MR, mild TR, PAP 45 to 50 mmHg, moderately dilated IVC
Plan:
-Presented 05/17/2024 with dysarthria, left facial droop. he had been off asa 81mg daily for 6 days for his knee surgery - S/p Rt TKA with Dr Hardy Burnette at [facility] 05/15/24
-Brain MRI with 1 cm acute ischemic infarct in superior right insular cortex and stable chronic intraparenchymal microhemorrhage in right cerebellar hemisphere
-Patient with permanent atrial fibrillation with controlled ventricular response on propranolol. He is s/p watchman implant. Post watchman MAVIS from October 2022 showed small 1 to 2 mm leak, stable by echo 05/18. [place] most likely to be low risk for
cardioembolic CVA. he is scheduled for MAVIS today
-also with reported dysphagia and is planned for video swallow - may need prior to MAVIS?
-Neurology recommending dual antiplatelet therapy with aspirin and Plavix x 21 days then single antiplatelet therapy after. Patient and his are very reluctant to start OAC given prior SAH and GIB.
-Transitioned Omeprazole to Pantoprazole while on Plavix
-Prestatin lipids 05/18/2022 TC 142, HDL 59, LDL 71, triglycerides 62. Patient started on atorvastatin 20 mg given acute stroke
HPI 05/18/2024:
Patient is a 79-year-old male with past medical history significant for chronic atrial fibrillation, status post watchman implant 09/24/2022, hypertension, subarachnoid hemorrhage after traumatic fall while on Xarelto 04/24/2022, GERD, BPH, history of
GI bleed/duodenal ulcers and recent knee replacement 05/15/2024 who was off aspirin 5 days in preparation of surgery who presented to emergency department 05/17/2024 after awakening with dysarthria and left-sided facial droop. Stroke alert was
called on arrival. Head CT demonstrated no acute intracranial abnormality. CTA of head and neck showed no large vessel occlusion or significant stenosis, aneurysm. Of note ascending aorta 4.2 cm. He was deemed not a candidate for thrombolytics
as he was out of window. Patient underwent MRI of brain 05/18/2024 which confirmed small acute infarct in right insular cortex with mild cytotoxic edema. Chronic stable 4.3 mm intraparenchymal microhemorrhage in right cerebellar hemisphere.
At time of this evaluation patient sitting in chair with at bedside. He notes some residual dysarthria and left-sided facial droop. He denies chest pain, shortness of breath, dizziness, lightheadedness, palpitations
Progress Note - Sales Trader
Subjective
Date of Service: May 19, 2024
Reports with some dysphagia and some continued speech deficits
Objective
Labs:
05/18/24 05:44
05/17/24 17:54
Labs
Hgb 11.6 g/dL (13.0-18.0) L 05/18/24 05:44
Hct 33.7 % (39.0-52.0) L 05/18/24 05:44
Plt Count 208 10^3/uL (130-400) 05/18/24 05:44
PT 14.6 Sec (11.4-14.6) 05/17/24 10:30
INR 1.16 05/17/24 10:30
APTT 31.4 Sec (23.4-35.0) 05/17/24 10:30
Sodium 135 mmol/L (135-145) 05/17/24 17:54
Potassium 4.6 mmol/L (3.5-5.1) 05/17/24 17:54
BUN 22 mg/dl (9-20) H 05/17/24 17:54
Creatinine 0.7 mg/dL (0.7-1.3) 05/17/24 17:54
Glucose 142 mg/dl (70-99) H 05/17/24 17:54
Troponins
05/17/24
10:30
Troponin I < 0.012
Vital Signs and I&O:
Vital Signs
Temp Pulse Resp BP Pulse Ox
97.9 F 89 18 143/86 97
05/19/24 07:10 05/19/24 08:32 05/19/24 07:10 05/19/24 08:32 05/19/24 07:10
Vital Signs
Temp Pulse Resp BP Pulse Ox
97.9 F 89 18 143/86 97
05/19/24 07:10 05/19/24 08:32 05/19/24 07:10 05/19/24 08:32 05/19/24 07:10
Intake & Output
05/17/24 05/18/24 05/19/24 05/20/24
07:59 07:59 07:59 07:59
Intake Total 1060 / 1060 1500 / 1500
Output Total 2250 / 2250 975 / 975
Balance -1190 / -1190 525 / 525
Physical Exam
Physical Exam
GEN: No distress, awake, alert, oriented x3
HEENT: supple, anicteric, mmm, eomi
LUNGS: CTA B/L, no wheezes/rales
CV: Irreg, S1/S2, no murmur
ABD: soft, BS+, NT/ND
EXT: No cyanosis, clubbing, edema
NEURO: some garbled speech, word finding difficulty noted
SKIN: Warm, pink, dry. No rash
[2024-05-19 11:00] VITALS: BP 121/77
--- NOTE | 2024-05-19 12:20 | W.PN.UPDATE ---
Update Note
Progress Note Update
MAVIS performed full report to follow. Watchman intact with no evidence of leak and no thrombus seen.
bubble study negative. Aorta with minimal plaqu /calcification in descending thoracic aorta.
Coninuted management of cardiology issues as per DCA
[2024-05-19] MEDS: ULTRAM 50 MG PO (13:02)
--- NOTE | 2024-05-19 15:05 | W.PN.HOSP.TC ---
Today's Communication/Plan
-
Continue DAPT.
Strict blood pressure control.
Physical therapy and speech therapy assessment
VSE.
Discharge planing
Assessment / Plan
Assessment / Plan
Impression:
Presentation with acute onset of left facial droop and aphasia
Acute right hemispheric CVA/right lacunar syndrome.
Conditions prior to admission:
Right TKA 05/15
Chronic atrial fibrillation.
Status post watchman placement 09/27.
Hypertension
History of subdural hematoma 04/26 while on rivaroxaban.
History of middle meningeal artery embolization baseline GERD.
Benign prostatic hyperplasia
Essential tremor.
History of gastrointestinal hemorrhage and duodenal ulcers
Plan:
Acute right lacunar syndrome.
Patient presents with acute onset of aphasia and left facial droop.
Persistent symptoms.
CT scan of the head with no acute abnormalities.
CTA with no vascular occlusion.
Patient was not a candidate for thrombolytic therapy due to unknown timing of onset of his symptoms.
Has been on aspirin prior to presentation, dose increased to full dose for DVT prophylaxis with recent TKA on 05/15.
Start DAPT for 21 days with addition of Plavix. Patient cleared for DAPT by primary orthopedics.
Continue PPI.
Additional workup with MRI
LDL 71. Initiated on statin
Goal is normotension. Continue propranolol (has been taking it for essential tremor). Monitor blood pressure trend
Hemoglobin A1c 5.6
Echocardiogram/MAVIS performed with Watchman device intact with no evidence of leak or thrombus. Bubble study negative.
DVT prophylaxis with heparin
Physical therapy assessment
Speech and swallow assessment reports cough with liquid.
Check VSE
Right TKA
Physical therapy
Analgesia with Tylenol/Ultram/Neurontin. Patient reports poor tolerance to oxycodone
Persistent atrial fibrillation
Status post watchman.
Echocardiogram
Cardiology evaluation.
History of BPH.
Monitor for retention
History of gastrointestinal hemorrhage and duodenal ulcers
Continue PPI
Anticipated Discharge: 24 - 48 hours
Subjective/Interval History
-
Date of Service: May 19, 2024
Objective Data
-
Vital Signs:
Vital Signs
Temp Pulse Resp BP Pulse Ox
98.2 F 75 16 121/77 95
05/19/24 11:00 05/19/24 11:00 05/19/24 11:00 05/19/24 11:00 05/19/24 11:00
I&O
05/18/24 05/19/24 05/20/24
06:59 06:59 06:59
Intake Total 1060 / 1060 1500 / 1500
Output Total 2250 / 2250 975 / 975
Balance -1190 / -1190 525 / 525
Physical Exam
-
General: Well Developed and No Apparent Distress
HEENT: Normocephalic, Atraumatic and Moist Mucous Membranes
Respiratory: Clear to Auscultation
Cardiac: Regular Rhythm and S1/S2; Negative Murmur, Rub or Gallop
GI: Soft, Nontender, Nondistended and Normal Bowel Sounds; Negative Organomegaly
Rectal: Deferred by Provider
Musculoskeletal: No Clubbing, No Cyanosis and No Edema
Skin: Negative Rash
Neuro: Tremors, Slurred Speech and Facial Droop (Left)
[2024-05-19 15:10] VITALS: BP 114/71
--- NOTE | 2024-05-19 15:23 | CM ---
Patient seen at bedside.
Echo, MAVIS scheduled today.
Patient states video swallow tomorrow.
Current with Angie De La Torre since R TKA on 05/15
PLAN: Home with Angie De La Torre [facility], RN, PT, OT, ST
ANGIE DE LA TORRE
Fax #: [phone]
[2024-05-19] MEDS: LIPITOR 40 MG PO (18:02)
[2024-05-19] MEDS: PROSCAR 5 MG PO (18:04)
[2024-05-19 19:27] VITALS: BP 137/74
[2024-05-19 23:29] VITALS: BP 141/88
[2024-05-20 03:18] VITALS: BP 129/76
--- NOTE | 2024-05-20 04:06 | DOWNTIME ---
There was a [employer] Downtime on 05/20/2024 from 0100 to 05/20/2024 at 0355. Downtime documentation of patient's care, including medication administrations, has been reconciled in the electronic record per guidelines. Refer to the
patient's paper chart under the miscellaneous tab to see printed paper medication records and downtime forms.
[2024-05-20 07:10] VITALS: BP 132/83
[2024-05-20] MEDS: PLAVIX 75 MG PO (08:57)
[2024-05-20] MEDS: COLACE 100 MG PO (08:58)
[2024-05-20] MEDS: ASPIR LOW (ENTERIC COATED) 81 MG PO (08:58)
[2024-05-20] MEDS: INDERAL 20 MG PO (08:58)
[2024-05-20] MEDS: PROTONIX 40 MG PO (08:58)
[2024-05-20] MEDS: NEURONTIN 100 MG PO (08:59)
[2024-05-20 11:00] VITALS: BP 124/84
--- NOTE | 2024-05-20 11:45 | W.DS.TRANS ---
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
-
Discharge Instructions:
Sleep Apnea Risk Intermediate
Discharge Diagnosis/Procedures Impression:
Presentation with acute onset of left facial
droop and aphasia
Acute right hemispheric CVA/right lacunar
syndrome.
Conditions prior to admission:
Right TKA 05/15
Chronic atrial fibrillation.
Status post watchman placement 09/27.
Hypertension
History of subdural hematoma 04/26 while on
rivaroxaban.
History of middle meningeal artery embolization
baseline GERD.
Benign prostatic hyperplasia
Essential tremor.
History of gastrointestinal hemorrhage and
duodenal ulcers
Diet Low Cholesterol,Other diet
Additional Diets Recommend regular solids and thin liquids.
Single sips, dry swallows, chin tuck. Meds with
liquid as tolerated or whole in applesauce. ST
in next level of care for dysarthria and
swallowing
Instructions:
Stand-Alone Forms:
Changes to Home Medications: Yes
Discharge Medications:
DC Medications w/original date entered in [facility]
alfuzosin 10 mg tablet,extended release 24 hr 10 mg PO DAILY Urinary Issue 09/18/22
diphenhydramine HCl 50 mg capsule 50 mg PO Q6HPRN PRN allergies 09/18/22
propranolol 20 mg tablet 20 mg PO BID Blood Pressure 09/18/22
acetaminophen 650 mg tablet,extended release 1,300 mg PO TIDPRN PRN mild pain 05/17/24
calcium carbonate (Tums) 200 mg PO BIDPRN PRN gerd 05/17/24
docusate sodium 100 mg capsule (Colace) 100 mg PO BID Constipation 05/17/24
finasteride 5 mg tablet 5 mg PO QPM Urinary Issue 05/17/24
gabapentin 100 mg capsule 100 mg PO TID Neurological Condition 05/17/24
omeprazole 20 mg tablet,delayed release 20 mg PO DAILY Gastrointestinal Issue 05/17/24
ondansetron 4 mg disintegrating tablet 4 mg PO Q6HPRN PRN NAUSEA 05/17/24
aspirin 81 mg tablet,delayed release 81 mg PO DAILY #30 tabs 05/20/24
atorvastatin 40 mg tablet 40 mg PO QPM #30 tabs 05/20/24
clopidogrel 75 mg tablet 75 mg PO DAILY #20 tabs 05/20/24
Home Medication Changes
Dual antiplatelet therapy and statin initiated.
Pending Results: No
--- NOTE | 2024-05-20 12:10 | CM ---
met with patient and at bedside.patient is stable for dc home today. joe signed imm letter.[facility]wif to transport patient home.
[facility] [phone].
[2024-05-20 12:25] VITALS: BP 124/64; PULSE 75; O2SAT 100
[2024-05-20 12:29] VITALS: BP 149/99; PULSE 85; O2SAT 97
[2024-05-20] MEDS: FLUAD (65 yr+) 2024-2025 FORMULA 0.5 ML IM (12:42)
--- NOTE | 2024-05-20 14:01 | PTOTSP ---
Video Swallow Examination
Slight delay initiating swallow and laryngeal vestibular closure with thin liquids resulting in transient laryngeal penetration. No persistent penetration or aspiration but risk is somewhat elevated. Trace to mild pharyngeal stasis due in part to
prominent cricopharyngeal bar.
Recommend
1. Regular solids and thin liquids.
2. Single sips of liquid
3. Chin tuck with liquids and mixed consistencies.
4. Dry swallow
5. Aspiration precautions.
6. Meds with liquid as tolerated vs whole in applesauce.
7. Skilled ST at next level of care.
--- NOTE | 2024-05-20 14:19 | PTOTSP ---
Speech Therapy Assessment
Patient presents with a mild to moderate dysarthria characterized by articulatory imprecision with sibilant distortions as most salient feature. No gross language deficits appreciated.
Recommend follow ST in next level of care with comprehensive assessment of cognitive and language skills. Also follow up for mild dysphagia
== END 2024-05-20 13:28 | disposition home health service (06) | DRG 64 ==
LOC: 2 NORTH 14:05
PROVIDERS: ADMITTING PHYSICIAN Internal Medicine; ATTENDING PHYSICIAN Internal Medicine; CONSULT PHYSICIAN Internal Medicine Cardiovascular Disease; CONSULT PHYSICIAN Psychiatry & Neurology Neurology; EMERGENCY PHYSICIAN Emergency Medicine; FAMILY PHYSICIAN Internal Medicine
PROC: 3E02340 Introduction of Influenza Vaccine into Muscle, Percutaneous Approach (ICD-10-PCS; 2024-05-20)
DX: I63.89 Other cerebral infarction (principal); G93.6 Cerebral edema; I48.21 Permanent atrial fibrillation; R47.01 Aphasia; G46.7 Other lacunar syndromes; I08.1 Rheumatic disorders of both mitral and tricuspid valves; I10 Essential (primary) hypertension; R29.706 NIHSS score 6; R29.810 Facial weakness; R47.1 Dysarthria and anarthria; G25.0 Essential tremor; K21.9 Gastro-esophageal reflux disease without esophagitis; K59.00 Constipation, unspecified; N40.0 Benign prostatic hyperplasia without lower urinary tract symptoms; M25.561 Pain in right knee; R26.2 Difficulty in walking, not elsewhere classified; Z91.81 History of falling; Z96.651 Presence of right artificial knee joint; Z79.01 Long term (current) use of anticoagulants; Z79.82 Long term (current) use of aspirin; Z79.899 Other long term (current) drug therapy; Z95.818 Presence of other cardiac implants and grafts; Z87.11 Personal history of peptic ulcer disease; Z87.820 Personal history of traumatic brain injury; Z87.442 Personal history of urinary calculi; Z91.041 Radiographic dye allergy status; Z23 Encounter for immunization
CPT/HCPCS: 70450; 70496; 70498; 70551; 74230; 80053; 80061; 80306; 81003; 82962; 83036; 83735; 84443; 84484; 85025; 85027; 85610; 85730; 90662; 92523; 92526; 92610; 92611; 93005; 93306; 93312; 93320; 93325; 96374; 97110; 97116; 97162; 97167; 97535; 99291; G0008; Q9967

== ENCOUNTER → 2024-06-22 09:23 | Outpatient (REF) | payer MEDICARE, OTHER, SELFPAY ==
[2024-06-22 11:54] LABS: % Basophils 0.9 % (0-2); % Eosinophils 3.3 % (0-6); % Immature Granulocytes 0.3 % (0-0.5); % Lymphocytes 27.9 % (20.5-51.1); % Monocytes 11.1 % (1.7-9.3); % Neutrophils 56.5 % (42.2-75.2); Absolute Basophils 0.1 10^3/uL (0-0.2); Absolute Eosinophils 0.2 10^3/uL (0-0.7); Absolute Lymphocytes 1.8 10^3/uL (1.2-3.4); Absolute Monocytes 0.7 10^3/uL (0.1-0.6); Absolute Neutrophils 3.6 10^3/uL (1.4-6.5); Hematocrit 42.7 % (39.0-52.0); Hemoglobin 14.1 g/dL (13.0-18.0); Mean Corpuscular Hgb 31.8 pg (27.0-31.0); Mean Corpuscular Volume 96.4 fL (80.0-94.0); Mean Platelet Volume 9.6 fL (7.4-10.4); Nucleated Red Blood Cells % 0 % (-); Platelet Count 261 10^3/uL (130-400); Red Blood Cell Count 4.43 10^6/uL (4.70-6.10); Red Cell Dist. Width 12.9 % (11.5-14.5); White Blood Cell Count 6.4 10^3/uL (4.8-10.8)
[2024-06-22 12:22] LABS: ALT (SGPT) 21 U/L (0-50); AST (SGOT) 24 U/L (17-59); Albumin 4.2 g/dl (3.5-5.0); Alkaline Phosphatase 139 U/L (38-126); Blood Urea Nitrogen 23 mg/dl (9-20); Carbon Dioxide 31 mmol/L (22-30); Chloride 97 mmol/L (98-107); Glucose 111 mg/dl (70-99); Potassium 4.5 mmol/L (3.5-5.1); Sodium 137 mmol/L (135-145); Total Bilirubin 0.8 mg/dl (0.2-1.3); Total Protein 6.8 g/dl (6.3-8.2); eGFR > 60.00
[2024-06-22 12:54] LABS: PSA, Total - Diagnostic 0.79 ng/ml (0.0-4.0)
== END ==
LOC: HWLAB 09:23
PROVIDERS: ATTENDING PHYSICIAN Surgery; FAMILY PHYSICIAN Internal Medicine; REFERRING PHYSICIAN Internal Medicine Cardiovascular Disease
DX: N40.1 Benign prostatic hyperplasia with lower urinary tract symptoms (principal); I48.21 Permanent atrial fibrillation; I10 Essential (primary) hypertension; I34.0 Nonrheumatic mitral (valve) insufficiency
CPT/HCPCS: 36415; 80053; 84153; 85025

== ENCOUNTER → 2024-09-23 08:18 | Outpatient (REF) | payer MEDICARE, OTHER, SELFPAY ==
[2024-09-23 10:52] LABS: HDL Cholesterol 51 mg/dl; LDL Cholesterol, Calculated 62 mg/dl; Total Cholesterol 122 mg/dl (50-199); Triglyceride 47 mg/dl (10-149); Very Low Density Lipoprotein 9 mg/dl (0-30)
== END ==
LOC: HWLAB 08:18
PROVIDERS: ATTENDING PHYSICIAN Internal Medicine Cardiovascular Disease; FAMILY PHYSICIAN Internal Medicine
DX: E78.5 Hyperlipidemia, unspecified (principal)
CPT/HCPCS: 36415; 80061

== ENCOUNTER 2024-12-16 15:20 | Emergency (ER) | payer MEDICARE, OTHER, SELFPAY ==
[2024-12-16] VITALS (8 sets, daily range): BP systolic 119–166; BP diastolic 66–95; BMI 24.9
[2024-12-16 16:32] LABS: % Basophils 0.3 % (0-2); % Eosinophils 0.2 % (0-6); % Immature Granulocytes 0.3 % (0-0.5); % Lymphocytes 13.4 % (20.5-51.1); % Monocytes 7.9 % (1.7-9.3); % Neutrophils 77.9 % (42.2-75.2); Absolute Lymphocytes 1.2 10^3/uL (1.2-3.4); Absolute Monocytes 0.7 10^3/uL (0.1-0.6); Absolute Neutrophils 6.8 10^3/uL (1.4-6.5); Hematocrit 37.4 % (39.0-52.0); Hemoglobin 12.3 g/dL (13.0-18.0); Mean Corp Hgb Conc. 32.9 g/dL (33.0-37.0); Mean Corpuscular Hgb 29.9 pg (27.0-31.0); Mean Corpuscular Volume 90.8 fL (80.0-94.0); Mean Platelet Volume 8.9 fL (7.4-10.4); Nucleated Red Blood Cells % 0 % (-); Platelet Count 288 10^3/uL (130-400); Red Blood Cell Count 4.12 10^6/uL (4.70-6.10); Red Cell Dist. Width 15.1 % (11.5-14.5); White Blood Cell Count 8.8 10^3/uL (4.8-10.8)
--- NOTE | 2024-12-16 16:36 | ED.GENMED ---
History of Present Illness
General
Chief Complaint: Chest Pain
Source: patient and spouse
Exam Limitations: none
Time Seen by Provider: 12/16/24 16:11
Nursing documentation reviewed up to this point in time: agreed with
History of Present Illness
History of Present Illness:
Patient is a 79-year-old male with history of atrial fibrillation with Watchman device presenting to the emergency department for evaluation of chest pain. Patient states that he noticed pain/pressure in his left chest radiating to his left jaw
just before noon today while he was moving some photo boxes around in a closet. Jaw pain did not last long although chest tightness persisted prompting visit to the emergency department. He reports symptoms exacerbated with deep inspiration. He
feels as if he has to take shallow breaths secondary to pain. He denies any sensation of shortness of breath. He denies any associated diaphoresis. He denies any clear exertional component to symptoms.
Patient was at his primary care office today for scheduled appointment due to recent weight loss, lightheadedness, and fatigue. When he mentioned the chest pain they referred him to the emergency department.
Patient denies any recent travel or recent surgeries.
He follows w/ Dr. Soto as primary tail dogger
Past History
Past History
ED Past Medical History: Arrthythmia (afib on Xarelto) and Other (tremors, kidney stones)
ED Past Surgical History: Appendectomy, Orthopedic and Other (van IHR)
Social History
Tobacco: Non-smoker
Review of Systems
Review of Systems
Allergies reviewed?: Yes
All Other Systems: ROS reviewed and negative except as documented in HPI and ROS
Phy Exam
Physical Exam
Physical Exam:
Vitals: Patient's vital signs are stable. Afebbrile
General: Patient is well appearing, no acute distress. Nontoxic appearing
Skin: Warm and dry, no rashes or lesions
Head: Normocephalic, atraumatic
Eyes: Sclera nonicteric. EOMs intact. No nystagmus.
Throat: Protecting airway
Neck: Normal ROM, no cervical spine tenderness, no meningismus
Cardiac: Regular rate, irregularly irregular rhythm, no murmurs.
Pulm: Shallow breaths secondary to pain. Lungs clear bilaterally. O2 saturation 98 on room air.
.
Abdomen: No abdominal tenderness.
Extremities: No evidence of cyanosis or edema. Palpable DP pulses bilaterally.
Neuro: AAOx3. Grossly intact
Psychiatric: Normal affect.
Scores
Heart Score for Chest Pain Patients
STEMI patient?: No
History: Moderately Suspicious
ECG: Normal
Age: >/= 65 years
Risk Factors: 1 or 2 Risk Factors
Troponin: </= Normal Limit
Heart Score for Chest Pain Patients: 4
Heart Score Risk: 20.3% MACE over next 6 weeks
Course
Orders/Labs/Results
Orders:
Orders
12/16/24 15:22
ECG [Electrocardiogram (*1)] Urgent
Reason for Study: Chest Pain
12/16/24 15:23
ECG [Electrocardiogram (*1)] Urgent
Reason for Study: Chest Pain
EKG- Treatment ONCE
EKG- Treatment ONCE
12/16/24 16:22
Complete Blood Count/With Diff Urgent
Comprehensive Metabolic Panel Urgent
Troponin I Urgent
12/16/24 16:36
CR Chest - 2 Views Urgent
Comment:
Reason For Exam: pleuritic chest pain
12/16/24 16:41
D-Dimer Urgent
12/16/24 19:23
Troponin I Urgent
12/16/24 19:25
Electrocardiogram (*1) Urgent
Reason for Study: Chest Pain
EKG- Treatment ONCE
12/16/24 19:36
CT Chest PE Study Urgent
Comment:
Reason For Exam: Pleuritic chest pain, elevated d-dimer
12/16/24 19:39
Diphenhydramine [Benadryl] 50 mg IV NOW STA
Hydrocortisone Sod Succinate [Solu-Cortef] 200 mg IV NOW STA
Abnormal Lab Results
12/16/24 12/16/24
16:22 16:41
RBC 4.12 L 10^6/uL
(4.70-6.10)
Hgb 12.3 L g/dL
(13.0-18.0)
Hct 37.4 L %
(39.0-52.0)
MCHC 32.9 L g/dL
(33.0-37.0)
RDW 15.1 H %
(11.5-14.5)
Absolute Neuts (auto) 6.8 H 10^3/uL
(1.4-6.5)
Absolute Monos (auto) 0.7 H 10^3/uL
(0.1-0.6)
Neutrophils % 77.9 H %
(42.2-75.2)
Lymphocytes % 13.4 L %
(20.5-51.1)
D-Dimer 0.67 H ug/mlFEU
(0.00-0.50)
Sodium 134 L mmol/L
(135-145)
BUN 21 H mg/dl
(9-20)
Glucose 111 H mg/dl
(70-99)
12/16/24 16:22
12/16/24 16:22
Vital Signs
Initial and Last Documented VS:
Initial Vital Signs
Temp Pulse Resp BP Pulse Ox
98.1 F 95 20 166/90 98
12/16/24 15:24 12/16/24 15:24 12/16/24 15:24 12/16/24 15:24 12/16/24 15:24
Last Documented Vital Signs
Temp Pulse Resp BP Pulse Ox
98.1 F 100 20 131/87 98
12/16/24 15:24 12/16/24 22:16 12/16/24 22:00 12/16/24 22:00 12/16/24 20:00
MDM/Problems Addressed
Differential Diagnosis Includes:
Not limited to: acute coronary syndrome, pulmonary embolism, pleurisy, costochondritis, pnuemothorax, etc
MDM/Problems Addressed:
79-year-old male presenting with pleuritic chest pain which started earlier today when he was moving boxes in a closet. No exertional component to symptoms. No associated nausea, lightheadedness, or diaphoresis. He does have history of atrial
fibrillation with watchmen device, although no history of CAD. Vitals and physical exam as above. EKG shows rate controlled atrial fibrillation. Will send labs, troponin, d-dimer, check chest x-ray. Patient reports 0/10 chest pain at rest and is
stable on my assesment.
Update: Patient has remained stable and well appearing in the emergency department. He has no chest pain other than with inspiration. EKG�s reveal atrial fibrillation without acute ischemic changes. Labs unremarkable with serial troponins negative x
2. CT PE study without evidence of pulmonary embolism. At this point � very low suspicion for acute cardiac emergent process including UT or PE. Ascending thoracic aortic aneurysm noted to have increased in size on CT scan. This was discussed with
patient and he was provided a copy of report to ensure appropriate follow up with cardiology. Work up in emergency department negative. Patient remains well and comfortable. Feel stable for discharge home w/ outpatient follow-up. He has cardiology
appointment scheduled for tomorrow which he will keep. Return precautions discussed.
Chronic conditions affecting care:
Atrial fibrillation, thoracic aortic aneurysm
Acute Exacerbation and/or Progression of Chronic Illness:
Ascending thoracic aortic aneurysm increased in size
*Radiology
Radiology exam reviewed: preliminary read by ED provider (CXR reviewed by va - no acute abnormalities) and radiology read reviewed
*Pulse Oximetry
Patient hypoxic: no
*EKG
Interpreted by ED Provider?: Yes
EKG Intrepretation Date: 12/16/24
Interpretation: abnormal
Comparison EKG: changes noted
Heart Rate: 89
Rate: normal
Rhythm: a-fib
Interval: normal QT interval
Ischemia: no ischemia
*Utility Tractor Operator Interpretation
Rate: tachycardiac
Interpretation: abnormal
Heart Rate: 102
Rhythm: a-fib
*Critical Care Note
Total Time (30-74mins, 75-104mins- exclusive of procedures): Not Applicable
Data Reviewed
Review of Other/Old Records Reveals: Radiology Studies (CT chest 09/06/22 - thoracic aortic aneurysm measured at 4.1 cm)
Source: previous radiology exam
Patient Management
Escalation/DeEscalation of care consider admission/obs:
Admit not indicated.
ED Attending Note
-
Portions of this chart may have been created with voice recognition software.� Occasional wrong word or��sound alike� substitutions may have occurred due to the inherent limitations of voice recognition software.
Discharge Plan
Departure
Patient Disposition: Home (Routine Discharge)
Date of Disposition: 12/16/24
Time of Disposition: 22:23
Patient with high blood pressure during this ER visit?: Yes
Condition: Good
Covid-19: Not Applicable
Discharge Problem:
Pleuritic chest pain
Instructions: Chest pain - Discharge instructions
Prescriptions:
No Action
diphenhydramine HCl 50 mg Capsule
50 mg PO Q6HPRN PRN (Reason: allergies)
propranolol 20 mg Tablet
20 mg PO BID
alfuzosin 10 mg Tablet Extended Release 24 Hr
10 mg PO DAILY
acetaminophen 650 mg Tablet Extended Release
1,300 mg PO TIDPRN PRN (Reason: mild pain)
calcium carbonate [Tums] 200 mg calcium (500 mg) Tablet,Chewable
200 mg PO BIDPRN PRN (Reason: gerd)
docusate sodium [Colace] 100 mg Capsule
100 mg PO BID
gabapentin 100 mg Capsule
100 mg PO TID
ondansetron 4 mg Tablet,Disintegrating
4 mg PO Q6HPRN PRN (Reason: NAUSEA)
finasteride 5 mg Tablet
5 mg PO QPM
omeprazole 20 mg Tablet,Delayed Release (Dr/Ec)
20 mg PO DAILY
atorvastatin 40 mg Tablet
40 mg PO QPM Qty: 30 0RF
clopidogrel 75 mg Tablet
75 mg PO DAILY Qty: 20 0RF
aspirin 81 mg Tablet,Delayed Release (Dr/Ec)
81 mg PO DAILY Qty: 30 0RF
Referrals:
Bryant Tijerina DO [Family Provider] -
Hardy Soto MD [Active] - Tomorrow
Activity Restrictions/Additional Instructions:
RETURN TO THE EMERGENCY DEPARTMENT WITH ANY PERSISTENT/WORSENING CHEST PAIN, CHEST PAIN WORSE WITH EXERTION, SHORTNESS OF BREATH/DIFFICULTY BREATHING, SEVERE BACK PAIN, WORSENING IN CURRENT SYMPTOMS, OR ANY OTHER CONCERNS
-As discussed�your lab work and chest x-ray showed no acute abnormalities in the emergency department. There were a few incidental findings noted on your CT scan of your chest including the ascending aortic aneurysm and lesion on your liver, and
others as written in the report.
- Please follow-up with cardiology tomorrow as scheduled for further evaluation management. Repeat in show discussed the aortic aneurysm with your tail dogger to ensure this is monitored appropriately moving forward
- Follow-up with your primary care to ensure further imaging of your abdomen to better characterize the lesion on your liver is performed.
- Continue to take your medications as prescribed.
Monitor your symptoms closely and return to the emergency department with any acute worsening/new symptoms or any other
Interventions
Interventions:
*Risk Screen - Suicide Last Done: 12/16/24 16:15
*General Assessment Last Done: 12/16/24 15:24
*Neglect/Abuse Screening Last Done: 12/16/24 16:15
*ED- Fall Risk Assessment Last Done: 12/16/24 22:30
*ED COVID-19 Vaccine History Last Done: 12/16/24 22:30
*Nursing Disposition Last Done: 12/16/24 22:30
ED- Cardiac Assessment Last Done: 12/16/24 16:15
Discharge Date and Time
Discharge Date/Time: 12/16/24 22:31
Print Language: MAORI
[2024-12-16 16:47] LABS: ALT (SGPT) 15 U/L (0-50); AST (SGOT) 20 U/L (17-59); Albumin 4.2 g/dl (3.5-5.0); Alkaline Phosphatase 113 U/L (38-126); Blood Urea Nitrogen 21 mg/dl (9-20); Calcium 9.6 mg/dl (8.4-10.2); Carbon Dioxide 26 mmol/L (22-30); Chloride 101 mmol/L (98-107); Glucose 111 mg/dl (70-99); Potassium 4.2 mmol/L (3.5-5.1); Sodium 134 mmol/L (135-145); Total Protein 6.9 g/dl (6.3-8.2); eGFR > 60.00
[2024-12-16 16:58] LABS: Troponin I < 0.012 ng/ml
[2024-12-16 17:02] LABS: D-Dimer 0.67 ug/mlFEU (0.00-0.50)
[2024-12-16] MEDS: BENADRYL 50 MG IV (19:50)
[2024-12-16] MEDS: SOLU-CORTEF 200 MG IV (19:50)
[2024-12-16 20:01] LABS: Troponin I < 0.012 ng/ml
== END 2024-12-16 22:31 | disposition home or self-care (01) ==
LOC: EMR 15:20
PROVIDERS: Physician Assistant; EMERGENCY PHYSICIAN Emergency Medicine; FAMILY PHYSICIAN Internal Medicine
DX: R07.81 Pleurodynia (principal); R68.84 Jaw pain; R63.4 Abnormal weight loss; R42 Dizziness and giddiness; R53.83 Other fatigue; R03.0 Elevated blood-pressure reading, without diagnosis of hypertension; I48.91 Unspecified atrial fibrillation; R25.1 Tremor, unspecified; I71.21 Aneurysm of the ascending aorta, without rupture; Z87.442 Personal history of urinary calculi; Z79.82 Long term (current) use of aspirin; Z91.041 Radiographic dye allergy status
CPT/HCPCS: 99285; 96374; 96375; 71046; 71275; 80053; 84484; 85025; 85379; 93005; Q9967

== ENCOUNTER → 2025-04-30 08:01 | Outpatient (REF) | payer MEDICARE, OTHER, SELFPAY | LOC: PAVMRI 08:01 | PROVIDERS: ATTENDING PHYSICIAN Nurse Practitioner Adult Health; FAMILY PHYSICIAN Internal Medicine | DX: I63.9 Cerebral infarction, unspecified (principal) | CPT/HCPCS: 70551 ==

== ENCOUNTER → 2025-05-18 08:41 | Outpatient (REF) | payer MEDICARE, OTHER, SELFPAY ==
[2025-05-18 10:19] LABS: Hematocrit 39.9 % (39.0-52.0); Hemoglobin 13.4 g/dL (13.0-18.0); Mean Corp Hgb Conc. 33.6 g/dL (33.0-37.0); Mean Corpuscular Volume 94.8 fL (80.0-94.0); Nucleated Red Blood Cells % 0 % (-); Platelet Count 224 10^3/uL (130-400); Red Cell Dist. Width 14.2 % (11.5-14.5)
[2025-05-18 10:38] LABS: ALT (SGPT) 18 U/L (0-50); AST (SGOT) 21 U/L (17-59); Albumin 3.9 g/dl (3.5-5.0); Alkaline Phosphatase 89 U/L (38-126); Blood Urea Nitrogen 25 mg/dl (9-20); Calcium 9.6 mg/dl (8.4-10.2); Carbon Dioxide 30 mmol/L (22-30); Chloride 102 mmol/L (98-107); Glucose 112 mg/dl (70-99); HDL Cholesterol 64 mg/dl; LDL Cholesterol, Calculated 107 mg/dl; Potassium 4.5 mmol/L (3.5-5.1); Sodium 135 mmol/L (135-145); Total Protein 6.8 g/dl (6.3-8.2); Very Low Density Lipoprotein 10 mg/dl (0-30); eGFR > 60.00
[2025-05-18 10:57] LABS: Glycohemoglobin (HgbA1c) 5.9 % (4.0-5.6)
[2025-05-18 11:07] LABS: Medical Necessity Pt Refused PSA Screen,Total
[2025-05-18 11:50] LABS: PSA, Total - Diagnostic 0.76 ng/ml (0.0-4.0)
== END ==
LOC: HWLAB 08:41
PROVIDERS: ATTENDING PHYSICIAN Nurse Practitioner Adult Health; FAMILY PHYSICIAN Family Medicine
DX: I63.9 Cerebral infarction, unspecified (principal); R73.09 Other abnormal glucose; I48.0 Paroxysmal atrial fibrillation; I10 Essential (primary) hypertension; R63.4 Abnormal weight loss; E78.5 Hyperlipidemia, unspecified; N40.1 Benign prostatic hyperplasia with lower urinary tract symptoms
CPT/HCPCS: 36415; 80053; 80061; 83036; 84153; 84443; 85025

== ENCOUNTER → 2025-06-17 09:11 | Outpatient (REF) | payer MEDICARE, OTHER, SELFPAY | LOC: HWRAD 09:11 | PROVIDERS: ATTENDING PHYSICIAN Internal Medicine Cardiovascular Disease; FAMILY PHYSICIAN Family Medicine | DX: I71.9 Aortic aneurysm of unspecified site, without rupture (principal) | CPT/HCPCS: 71250 ==

== ENCOUNTER → 2025-06-25 09:44 | Outpatient (REF) | payer MEDICARE, OTHER, SELFPAY | LOC: RAD 09:44 | PROVIDERS: ATTENDING PHYSICIAN Thoracic Surgery (Cardiothoracic Vascular Surgery); FAMILY PHYSICIAN Family Medicine | DX: I71.21 Aneurysm of the ascending aorta, without rupture (principal) | CPT/HCPCS: 71275; 74174; Q9967 ==

== ENCOUNTER 2025-06-28 09:23 | Outpatient (RCR) | payer MEDICARE, OTHER, SELFPAY | END 2025-06-28 23:59 | disposition home or self-care (01) | LOC: ROT 09:23 | PROVIDERS: ATTENDING PHYSICIAN Nurse Practitioner Adult Health; FAMILY PHYSICIAN Family Medicine | DX: I69.311 Memory deficit following cerebral infarction (principal); I69.318 Other symptoms and signs involving cognitive functions following cerebral infarction; I69.320 Aphasia following cerebral infarction; I69.310 Attention and concentration deficit following cerebral infarction; I69.312 Visuospatial deficit and spatial neglect following cerebral infarction; Z73.6 Limitation of activities due to disability | CPT/HCPCS: 97167; 97530; 97535 ==

== ENCOUNTER 2025-08-04 07:11 | Outpatient (RCR) | payer MEDICARE, OTHER, SELFPAY | END 2025-08-04 23:59 | disposition home or self-care (01) | LOC: RST 07:11 | PROVIDERS: ATTENDING PHYSICIAN Nurse Practitioner Adult Health; FAMILY PHYSICIAN Family Medicine | DX: I69.311 Memory deficit following cerebral infarction (principal); I69.318 Other symptoms and signs involving cognitive functions following cerebral infarction; I69.320 Aphasia following cerebral infarction; I69.310 Attention and concentration deficit following cerebral infarction; I69.312 Visuospatial deficit and spatial neglect following cerebral infarction; Z73.6 Limitation of activities due to disability; I69.321 Dysphasia following cerebral infarction | CPT/HCPCS: 92507; 92523; 97112; 97530 ==